=== PATIENT | female | born 1995 | race Caucasian/White ===

== ENCOUNTER → 2017-01-23 | Outpatient (CLI) | payer OTHER ==
[~2017-01-23] MED LIST: ALLEGRA180 MG PO; POTASSIUM CITR15 MEQ PO; SINGULAIR10 MG PO; TYLENOL/COD#31 TAB PO; XULANE PATCH1 EACH; ZANTAC (NON-FO150 MG PO; ZOLAIR
== END | disposition disaster alternative care site (69) ==
LOC: GRAD 07:41
DX: Z87.442 Personal history of urinary calculi (principal)